=== PATIENT | female | born 1940 | race Caucasian/White ===

== ENCOUNTER 2017-04-06 23:18 | Observation (INO) | payer OTHER ==
[2017-04-06] MEDS ORDERED: NITROGLYCERIN 0.4 MG BTL SL PRN (23:23)
[2017-04-06] MEDS ORDERED: NS 1,000 ML IV ONE (23:23)
--- NOTE | 2017-04-06 23:26 | EDPHY ---
H & P HPI/ROS: HPI CHIEF COMPLAINT: Chest pain x5 hours HISTORY OF PRESENT ILLNESS: This patient very pleasant 76-year-old female, significant past medical history for endometrial cancer status post total hysterectomy, does not take any daily medications, presents emergency room by EMS with chest pain. Around 6 o'clock they were driving back her and her from [place] and developed substernal chest pain she describes as sharp in nature worse when she takes a deep breath in. She also tells me something 6 heavy is sitting on her chest. EMS arrived and evaluated her she did receive full-dose aspirin prior to arrival also received nitroglycerin that did mildly improve her discomfort however upon arrival to the emergency room she still has chest pain. She tells me it is hard to take a deep breath in with the pain feels short of breath associated with this. The pain does not radiate anywhere. She denies nausea, vomiting, jaw pain, arm pain, numbness or tingling o There is a heaviness in her chest. Past Medical History: Endometrial cancer, polio Past Surgical History: Hysterectomy, tonsillectomy Social History: Former smoker, Denies daily use drugs alcohol tobacco products Family History: Noncontributory ROS REVIEW OF SYSTEMS: A comprehensive 10 point review of systems is otherwise negative aside from elements mentioned in the history of present illness. Exam Constitutional appears uncomfortable, triage nursing summary reviewed, vital signs reviewed, awake/alert. Eyes normal conjunctivae and sclera, EOMI, PERRLA. HENT normal inspection, atraumatic, moist mucus membranes, no epistaxis, neck supple/ no meningismus, no raccoon eyes. Respiratory clear to auscultation bilaterally, normal breath sounds, no respiratory distress, no wheezing. Cardiovascular rate normal, regular rhythm, no murmur, no edema, distal pulses normal. Gastrointestinal soft, non-tender, no rebound, no guarding, normal bowel sounds, no distension, no pulsatile mass. Genitourinary no CVA tenderness. Musculoskeletal no midline vertebral tenderness, full range of motion, no calf swelling, no tenderness of extremities, no meningismus, good pulses, neurovascularly intact. Skin pink, warm, & dry, no rash, skin atraumatic. Neurologic awake, alert and oriented x 3, AAOx3, moves all 4 extremities equally, motor intact, sensory intact, CN II-XII intact, normal cerebellar, normal vision, normal speech. Psychiatric normal mood/affect. Heme/Lymph/Immune no lymphadenopathy. Differential diagnosis includes but is not limited to: ACS, atypical chest pain , pneumothorax, pneumonia, pulmonary embolism, aortic dissection, congestive heart failure, tumor, musculoskeletal pain, esophageal pain, GERD, peptic ulcer disease, pancreatitis Medical Decision Making: Plan for this patient full cardiac cath rn, IV establishment, EKG, chest x-ray, troponin, blood work, D-dimer. Patient receive full-dose aspirin will attempt another dose of nitroglycerin to see if this improves her chest discomfort. Re-evaluation: EKG interpretation by me on record in [email or web address] ([email or web address]) system. Impression time of EKG 2332, this is sinus rhythm rate of 75 there is no acute ischemic change appreciated specifically no ST elevation, ST depression significant T-wave abnormality. 2352: This patient was given a 2nd dose of nitroglycerin this greatly improved her chest discomfort. Repeat EKG is being performed at this time. It is also noted this patient has a positive D-dimer in the setting of chest pain and history of endometrial cancer patient need a CT angiogram of her chest rule out pulmonary embolism. CT scan of the angiogram chest. The results of the study are negative pulmonary embolism however there is pericardial circumferential thickening question pericarditis does not appear restrict. The study was read by Dr. Ruiz I viewed the images myself on the PACS system. EKG interpretation by me on record in [email or web address] ([email or web address]) system. Impression time of EKG 10/17/1999, this is sinus rhythm rate of 71 I do not appreciate acute ischemic change. This is unchanged from her previous EKG today. Specifically I do not appreciate any evidence of pericarditis. Unchanged from previous EKG today. This patient be admitted to the hospital service for chest pain evaluation. Her chest pain currently this time is is 0. Or chest pain-free. She did receive nitroglycerin improved her chest discomfort. It is noted on her CT angiogram of her chest she has diffuse pericardial thickening I have no evidence that she is having acute pericarditis at this time. However she does have pleuritic pain when she breathes in it is possible this is pericarditis. Troponins negative. EKG does not indicate pericarditis. Will need to admit to the hospital service for cardiac evaluation chest pain rule out. Dr. Naranjo has accepted Source: Patient, EMS - Personal History Tetanus Vaccine Date: < 10 years - Medical/Surgical History Hx Asthma: No Hx Chronic Respiratory Disease: No Hx Diabetes: No Hx Cardiac Disease: No Hx Renal Disease: No Hx Cirrhosis: No Hx Alcoholism: No Hx HIV/AIDS: No Hx Splenectomy or Spleen Trauma: No Other PMH: polio, tonsillectomy, HYSTERECTOMY 07/21 - Social History Smoking Status: Never smoked Constitutional: Initial Vital Signs Temperature (C) 36.6 C 04/06/17 23:20 Heart Rate 73 04/06/17 23:20 Respiratory Rate 20 04/06/17 23:20 Blood Pressure 99/66 L 04/06/17 23:20 O2 Sat (%) 93 04/06/17 23:20 O2 Delivery Mode Nasal Cannula O2 (L/minute) 2 Allergies/Adverse Reactions: No Known Allergies Allergy (Unverified 09/13/16 15:40) Home Medications: Medication Instructions Recorded NK [No Known Home Meds] 09/13/16 Medical Decision Making - Diagnostics Imaging Results: Imaging Impressions Chest X-Ray 04/06/17 23:23 Impression: Nothing acute identified. Chest/Thorax CTA 04/06/17 23:46 Impression: 1. No pulmonary embolic disease. 2. New global mild pericardial thickening. Query pericarditis. 3. No evidence for metastatic endometrial carcinoma. Results discussed with Dr. Carrasco at 12:14 AM. General information for patients regarding this examination can be found at [email or web address]. If you have questions or comments about this report, please contact me at (hospital) or [phone] (cell). - Data Points Laboratory Results: Laboratory Results 04/06/17 23:20 04/06/17 23:20 04/06/17 04/06/17 04/06/17 23:20 23:20 23:20 WBC 12.30 10^3/uL H 10^3/uL (3.80-9.50) RBC 4.60 10^6/uL 10^6/uL (4.18-5.33) Hgb 14.0 g/dL g/dL (12.6-16.3) Hct 42.5 % % (38.0-47.0) MCV 92.4 fL fL (81.5-99.8) MCH 30.4 pg pg (27.9-34.1) MCHC 32.9 g/dL g/dL (32.4-36.7) RDW 13.6 % % (11.5-15.2) Plt Count 257 10^3/uL 10^3/uL (150-400) MPV 10.7 fL fL (8.7-11.7) Neut % (Auto) 80.6 % H % (39.3-74.2) Lymph % (Auto) 8.5 % L % (15.0-45.0) [place] % (Auto) 9.1 % % (4.5-13.0) Eos % (Auto) 1.1 % % (0.6-7.6) Baso % (Auto) 0.2 % L % (0.3-1.7) Nucleat RBC Rel Count 0.0 % % (0.0-0.2) Absolute Neuts (auto) 9.91 10^3/uL H 10^3/uL (1.70-6.50) Absolute Lymphs (auto) 1.05 10^3/uL 10^3/uL (1.00-3.00) Absolute Monos (auto) 1.12 10^3/uL H 10^3/uL (0.30-0.80) Absolute Eos (auto) 0.13 10^3/uL 10^3/uL (0.03-0.40) Absolute Basos (auto) 0.03 10^3/uL 10^3/uL (0.02-0.10) Absolute Nucleated RBC 0.00 10^3/uL 10^3/uL (0-0.01) Immature Gran % 0.5 % % (0.0-1.1) Immature Gran # 0.06 10^3/uL 10^3/uL (0.00-0.10) PT 12.8 SEC SEC (12.0-15.0) INR 0.97 (0.83-1.16) APTT 25.0 SEC SEC (23.0-38.0) D-Dimer 0.51 ug/mLFEU H ug/mLFEU (0.00-0.50) Sodium 139 mEq/L mEq/L (134-144) Potassium 3.6 mEq/L mEq/L (3.5-5.2) Chloride 104 mEq/L mEq/L (97-110) Carbon Dioxide 20 mEq/l L mEq/l (22-31) Anion Gap 15 mEq/L mEq/L (8-16) BUN 23 mg/dL mg/dL (7-23) Creatinine 1.1 mg/dL H mg/dL (0.6-1.0) Estimated GFR 48 Glucose 121 mg/dL H mg/dL (70-100) Calcium 9.9 mg/dL mg/dL (8.5-10.4) Magnesium 2.2 mg/dL mg/dL (1.6-2.3) Total Bilirubin 0.8 mg/dL mg/dL (0.1-1.4) Conjugated Bilirubin 0.5 mg/dL mg/dL (0.0-0.5) Unconjugated Bilirubin 0.3 mg/dL mg/dL (0.0-1.1) AST 28 IU/L IU/L (14-46) ALT 36 IU/L IU/L (9-52) Alkaline Phosphatase 76 IU/L IU/L (38-126) Creatine Kinase 36 IU/L IU/L (0-156) CK-MB (CK-2) Fraction 0.30 ng/mL ng/mL (0-3.19) Troponin I < 0.012 ng/mL ng/mL (0-0.034) NT-Pro-B Natriuret Pep 109 pg/mL pg/mL (0-450) Total Protein 6.7 g/dL g/dL (6.3-8.2) Albumin 4.1 g/dL g/dL (3.5-5.0) Lipase 190.0 IU/L IU/L (23-300) Medications Given: Discontinued Medications Sodium Chloride (Ns) 1,000 mls @ 0 mls/hr IV ONCE ONE; Wide Open PRN Reason: Protocol Stop: 04/06/17 23:24 Last Admin: 04/06/17 23:50 Dose: 1,000 mls Nitroglycerin (Nitrostat) 0.4 mg SL Q5M PRN PRN Reason: Chest Pain Stop: 04/06/17 23:34 Last Admin: 04/06/17 23:50 Dose: 0.4 mg Departure - Departure Disposition: [facility] In[facility] Acute Clinical Impression: Chest pain Qualifiers: Chest pain type: unspecified Qualified Code(s): R07.9 - Chest pain, unspecified Condition: Fair Referrals: Patient,NotPresent [Unknown] - As per Instructions
[2017-04-06 23:29] LABS: % IMMATURE GRANULYOCYTES 0.5 % (0.0-1.1); ABSOLUTE IMMATURE GRANULOCYTES 0.06 10^3/uL (0.00-0.10); ADD DIFF? NO; ADD MORPH? NO; ADD SCAN? NO; ATYPICAL LYMPHOCYTE FLAG 0 (0-99); FRAGMENT RBC FLAG 0 (0-99); HEMATOCRIT 42.5 % (38.0-47.0); LEFT SHIFT FLG 0 (0-99); LIPEMIA HEMOLYSIS FLAG 80 (0-99); MEAN CELL HEMOGLOBIN 30.4 pg (27.9-34.1); MEAN CELL HEMOGLOBIN CONCENTR. 32.9 g/dL (32.4-36.7); MEAN CELL VOLUME 92.4 fL (81.5-99.8); MEAN PLATELET VOLUME 10.7 fL (8.7-11.7); PLATELET CLUMPS FLAG 60 (0-99); PLATELET COUNT 257 10^3/uL (150-400); RED CELL DISTRIBUTION WIDTH 13.6 % (11.5-15.2)
--- NOTE | 2017-04-06 23:33 | CPEKG ---
Heart Rate: 75 RR Interval: 800 P-R Interval: 156 QRSD Interval: 82 QT Interval: 388 QTC Interval: 434 P [place]: 44 QRS [place]: -12 T Wave [place]: 48 EKG Severity - NORMAL ECG - EKG Impression: SINUS RHYTHM Electronically Signed By: Ebenezer Hernandez 07-Apr-2017 09:46:57
[2017-04-06 23:38] LABS: INR 0.97 (0.83-1.16); PROTIME(PATIENT) 12.8 SEC (12.0-15.0)
[2017-04-06] MEDS ORDERED: NITROGLYCERIN 0.4 MG BTL SL ONE (23:42)
[2017-04-06 23:46] LABS: ALANINE AMINOTRANSFERASE 36 IU/L (9-52); ALBUMIN 4.1 g/dL (3.5-5.0); ALKALINE PHOSPHATASE 76 IU/L (38-126); ANION GAP 15 mEq/L (8-16); ASPARTATE AMINOTRANSFERASE 28 IU/L (14-46); BILIRUBIN,TOTAL 0.8 mg/dL (0.1-1.4); BILIRUBIN-CONJUGATED 0.5 mg/dL (0.0-0.5); BILIRUBIN-UNCONJUGATED 0.3 mg/dL (0.0-1.1); CALCIUM 9.9 mg/dL (8.5-10.4); CARBON DIOXIDE 20 mEq/l (22-31); CHLORIDE 104 mEq/L (97-110); CREATININE 1.1 mg/dL (0.6-1.0); GLOMERULAR FILTRATION RATE 48; GLUCOSE 121 mg/dL (70-100); MAGNESIUM 2.2 mg/dL (1.6-2.3); POTASSIUM 3.6 mEq/L (3.5-5.2); SODIUM 139 mEq/L (134-144); TOTAL PROTEIN 6.7 g/dL (6.3-8.2)
[2017-04-06] MEDS ORDERED: IOPAMIDOL (ISOVUE 370) 100 ML BTL IV ONE (23:48)
[2017-04-06 23:58] LABS: TROPONIN I < 0.012 ng/mL (0-0.034)
[2017-04-07] MEDS ORDERED: ONDANSETRON 4 MG/2 ML VIAL IVP PRN (00:22)
[2017-04-07] MEDS ORDERED: ACETAMINOPHEN 325 MG TAB PO PRN (00:22)
[2017-04-07] MEDS ORDERED: ONDANSETRON DISINTEGRATING 4 MG TAB PO PRN (00:22)
[2017-04-07] MEDS ORDERED: NS 1,000 ML IV SCH (00:30)
[2017-04-07 04:24] VITALS: TEMP 97.5
[2017-04-07 05:11] LABS: % IMMATURE GRANULYOCYTES 0.4 % (0.0-1.1); ABSOLUTE IMMATURE GRANULOCYTES 0.04 10^3/uL (0.00-0.10); ADD DIFF? NO; ADD MORPH? NO; ADD SCAN? NO; ATYPICAL LYMPHOCYTE FLAG 0 (0-99); FRAGMENT RBC FLAG 0 (0-99); HEMATOCRIT 34.8 % (38.0-47.0); HEMOGLOBIN 11.6 g/dL (12.6-16.3); LEFT SHIFT FLG 0 (0-99); LIPEMIA HEMOLYSIS FLAG 80 (0-99); MEAN CELL HEMOGLOBIN 30.5 pg (27.9-34.1); MEAN CELL HEMOGLOBIN CONCENTR. 33.3 g/dL (32.4-36.7); MEAN CELL VOLUME 91.6 fL (81.5-99.8); MEAN PLATELET VOLUME 11.2 fL (8.7-11.7); PLATELET CLUMPS FLAG 0 (0-99); PLATELET COUNT 206 10^3/uL (150-400); RED CELL DISTRIBUTION WIDTH 13.5 % (11.5-15.2)
[2017-04-07 05:26] LABS: ANION GAP 9 mEq/L (8-16); CALCIUM 8.7 mg/dL (8.5-10.4); CARBON DIOXIDE 19 mEq/l (22-31); CHLORIDE 112 mEq/L (97-110); CREATININE 0.9 mg/dL (0.6-1.0); GLOMERULAR FILTRATION RATE > 60; GLUCOSE 106 mg/dL (70-100); POTASSIUM 3.6 mEq/L (3.5-5.2); SODIUM 140 mEq/L (134-144)
[2017-04-07 05:38] LABS: TROPONIN I < 0.012 ng/mL (0-0.034)
--- NOTE | 2017-04-07 07:33 | GHP ---
[f rep st] HISTORY AND PHYSICAL DATE OF ADMISSION: 04/07/2017 CHIEF COMPLAINT: Chest pain. HISTORY OF PRESENT ILLNESS: This is a 76-year-old female with no active medical problems, but a rem ote history of endometrial cancer, who presents with fairly sudden onset of chest pain, which is sha rp and worse with inspiration. It did improve with nitroglycerin. She has not had any fevers or ch ills. No shortness of breath, nausea or vomiting. Pain only happens in the middle of her chest whe n she takes a deep inspiration. REVIEW OF SYSTEMS: A 10-point review of systems was obtained and other than stated above was negati ve. PAST MEDICAL HISTORY: 1. History of endometrial cancer. 2. Previous history of polio. PAST SURGICAL HISTORY: 1. Hysterectomy. 2. Tonsillectomy. SOCIAL HISTORY: No smoking. FAMILY HISTORY: Father had coronary bypass surgery in his 50s. PHYSICAL EXAMINATION: VITAL SIGNS: Afebrile, blood pressure is 101/55, heart rate 80, oxygen satur ation 96% on room air. GENERAL: She is well developed, no apparent distress. HEENT: Nonicteric s clerae. Extraocular movements intact. Moist mucous membranes. NECK: Supple. No thyromegaly. BOSSMAN NGS: Good effort. Clear to auscultation bilaterally. CARDIOVASCULAR: Regular rate and rhythm. N o murmurs, gallops. ABDOMEN: Positive bowel sounds. Soft, nontender, nondistended. No hepatosple nomegaly. EXTREMITIES: No clubbing, cyanosis, or edema. SKIN: Without rash, dry, intact. NEUROLO GICAL: She is moving all 4 extremities equally. PSYCH: Normal mood and affect. LABORATORIES: EKG shows normal sinus rhythm with no ischemic changes. White count is slightly elev ated at 12. Troponin is negative. CT scan of the chest shows mild pericardial thickening, but no P E. ASSESSMENT: A 76-year-old female, presenting with chest pain most likely due to pericarditis. PLAN: Chest pain. Symptoms are more consistent with pericarditis with a complete pleuritic nature. We will rule out with cardiac enzymes. I will check echocardiogram. I am going to start anti-inf lammatories. Probably defer stress testing at this time. /[id number]/MODL
[2017-04-07] MEDS: KETOROLAC 15 MG/1 ML SDV IVP SCH ×2 (09:22→12:56)
[2017-04-07 11:42] VITALS: BP 92/53; PULSE 68; RESP 19; O2SAT 91
--- NOTE | 2017-04-07 12:47 | ECHO ---
[id number] + + [address] : : [place] [address] : : [phone] + + Adult Echocardiographic Report + -------+ :Name: Shira CHAU Date: 04/07/2017 08:46 AM BP: 93/49 mmHg : : Hospital Admission Number: [id number] Jesus on: 222: :: 1940 Gender: Female Height: 63 in : :Age: 76 yrs Race: WH Weight: 110 lb : :Reason For Study: ?pericarditis : : BSA: 1.5 meter s2 : :History: ?pericarditis : + -------+ MMode/2D Measurements \T\ Calculations IVSd: 0.71 cm RVDd: 2.8 cm FS: 28.2 % Ao root diam: LVPWd: 0.74 cm LVIDd: 4.0 cm EDV(Teich): 2.7 cm LVIDs: 2.9 cm 70.6 ml ESV(Teich): 31.7 ml EF(Teich): 55.1 % LVLd ap4: 6.6 cm SV(MOD-sp4): EDV(MOD-sp4): 33.0 ml 47.0 ml LVLs ap4: 5.3 cm ESV(MOD-sp4): 14.0 ml EF(MOD-sp4): 70.2 % Normal Measurement Values: + + :LVIDd (3.5-5.7cm) IVSd (0.6-1.1cm) LVPWd (0.6-1.1cm) Aortic Root (2.0-3.7cm)Left Atrium (1.5-4.0cm): :LV Vol(d) (76-115ml) LV Vol(s) (29-48ml) Ejec Fraction (50-65%)PV Sami (0.6- 1.2m/s) TV Sami (0.4-1.0m/s) : :MV E Sami (0.8-1.0m/s)MV A Sami (0.3-1.0m/s)LVOT Sami (0.7-1.2m/s) Asc Ao Sami ( 0.9-1.8m/s) : + + Doppler Measurements \T\ Calculations MV E max sami: Ao V2 max: LV V1 max: PA V2 max: 78.0 cm/sec 124.3 cm/sec 96.7 cm/sec 85.7 cm/sec MV A max sami: Ao max P.2 mmHgLV V1 max PG: PA max P.8 cm/sec 3.7 mmHg 2.9 mmHg MV E/A: 0.86 MV dec time: 0.14 sec TR max sami: 248.5 cm/sec TR max P.7 mmHg RAP systole: 5.0 mmHg RVSP(TR): 29.7 mmHg Left Ventricle The left ventricle is normal in size and function. There is normal left ventricular wall thickness. Ejection Fraction = 65%. No regional wall motion abnormalities noted. Right Ventricle The right ventricle is normal in size and function. Atria The left atrial size is normal. Right atrial size is normal. Mitral Valve The mitral valve is normal in structure and function. There is no mitral valve stenosis. There is trace mitral regurgitation. Tricuspid Valve The tricuspid valve is normal in structure and function. There is no tricuspid stenosis. There is mild tricuspid regurgitation. Right ventricular systolic pressure is 30mmHg. Aortic Valve The aortic valve is trileaflet. There is no aortic stenosis. There is no aortic insufficiency. Pulmonic Valve The pulmonic valve is not well visualized. Great Vessels The aortic root is normal size. Pericardium/Pleural There is an anterior pericardial fat pad. Conclusion A two-dimensional transthoracic echocardiogram with M-mode and Doppler was performed. 1. The left ventricle is normal in size and function. Ejection Fraction = 65%. No regional wall motion abnormalities noted. 2. The mitral valve is normal in structure and function. There is trace mitral regurgitation. 3. The aortic valve is trileaflet. There is no aortic stenosis. There is no aortic insufficiency. 4. Right ventricular systolic pressure is 30mmHg. 5. There is an anterior pericardial fat pad. Can not exclude a small anterior pericardial effusion. Final Reading Physician: Ebenezer Dutton MD electronically signed on 04/07/2017 12:45 PM Ordering Physician: Scott Naranjo Performed By: Astrid Leone
--- NOTE | 2017-04-07 15:42 | PDDCSUM ---
Discharge Summary Discharge Summary: HOSPITAL COURSE 76 yo female admitted for chest pain and found to have likely pericarditis of unclear etiology. Possible small pericardial effusion on Echocardiogram. No evidence of tamponade and hemodynamic compromise. Was treated with Toradol with full resolution of her sx's. CP r/o followed. No elevated troponin. No events on telemetry. As she is not having any pain and wants to go home, will discharge with Ibuprofen 600mg TID x 7 days. Will hold of on Colchicine given full resolution of sx's on one day of Toradol. Will f/u with her PCP (leyla) in one week to determine if additional imaging (Echo) is needed. DDx: -pericarditis -chest pain Exam: VSS NAD AAOX3 RRR CTA B S/NT/ND NO EDEMA DISCHARGE MEDS: IBUPROFEN STARTED. STOP IN ONE WEEK. TOTAL TIME SPENT ON DISCHARGE IS 35 MINS.
--- NOTE | 2017-04-08 07:36 | CPEKG ---
Heart Rate: 71 RR Interval: 845 P-R Interval: 160 QRSD Interval: 84 QT Interval: 408 QTC Interval: 444 P [place]: 66 QRS [place]: -5 T Wave [place]: 48 EKG Severity - NORMAL ECG - EKG Impression: SINUS RHYTHM Electronically Signed By: Ebenezer Hernandez 08-Apr-2017 08:54:47
== END 2017-04-07 17:44 | disposition home or self-care (01) ==
LOC: EDUNIT# → INTOOBSV 04-07 00:21 → F2W 04-07 01:25
PROVIDERS: ADMIT Internal Medicine; ATTEND Family Medicine
DX: R07.89 Other chest pain (principal); Z85.44 Personal history of malignant neoplasm of other female genital organs; Z86.12 Personal history of poliomyelitis
CPT/HCPCS: 71010; 71275; 93005; 93306; 96360; 99285; G0378; J1885; Q9967

== ENCOUNTER 2018-03-17 10:42 | Emergency (ER) | payer OTHER ==
--- NOTE | 2018-03-17 10:43 | EDPHY ---
HPI/HX/ROS/PE/MDM Narrative: CHIEF COMPLAINT: Chest pain HPI: This is a 77-year-old female with a history of endometrial cancer. She reports sudden onset of sharp substernal chest pain that began sometime this morning and lasted approximately 1 min. History somewhat limited by the patient 's Alzheimer's disease and neither she nor her partner can recall the exact timing or nature of symptoms. She states that she took a full-strength aspirin at that time which relieved her symptoms. She is now completely chest pain free. She denies any recent fever, coughing or pain with inspiration. EMS notes that the patient complained that the pain was worse with movement and laying on 1 side in bed. REVIEW OF SYSTEMS: Aside from elements discussed in the HPI, a comprehensive 10-point review of systems was reviewed and is negative. PMH: Includes endometrial cancer. Patient was admitted last year with a possible diagnosis of pericarditis. SOCIAL HISTORY: Denies alcohol or drug abuse. PHYSICAL EXAM: General:Patient is alert, in no acute distress. ENT:Eyes are normal to inspection. ENT inspection normal. Neck: Normal inspection. Full range of motion. Respiratory:No respiratory distress. Breath sounds normal bilaterally. Cardiovascular: Regular rate and rhythm. Strong peripheral pulses. Normal cap refill. Abdomen:The abdomen is nontender to palpation. There are no peritoneal signs. There are normal bowel sounds. Back: Normal to inspection. No tenderness to palpation. Skin: Normal color. No rash. Warm and dry. Extremities: Normal appearance. Full range of motion. Neuro: Normal motor function. Normal sensory function. ED Course: Plan for IV, labs, EKG, chest x-ray. 500mL IV NS ordered. The 12 lead EKG was interpreted by myself. Sinus mechanism. Unchanged from EKG . See hard copy and/or "tracemaster" electronic copy for interpretation. MDM: This patient presents with atypical chest pain that has completely resolved by time of presentation to the ED. She and her family member are unable to really adequately describe the sensation she had or the exact timing of when it occurred. We performed an extensive cardiac workup in the ED which is negative for ACS, PE, PTX, arrhythmia or infection. The patient mentioned that she had been diagnosed with pericarditis last year. I reviewed these records and it appears the only objective evidence of pericarditis was the presence of a mild pericardial effusion and accompanying chest pain. She had no ECG or lab markers to support that diagnosis. We performed an echo here which is negative for significant effusion and there are no signs of ECG abnormality to suggest pericarditis at this time. I think she is safe for outpatient follow-up. I cautioned her regarding the need for close PCP evaluation. - Data Points Imaging Results: Imaging Impressions Chest X-Ray 03/17/18 10:47 Impression: 1. Chest negative for acute abnormality; suspect basilar atelectasis. 2. See above report for additional findings. Imaging: I viewed and interpreted images myself Laboratory Results: Laboratory Results 03/17/18 10:50 03/17/18 10:50 03/17/18 03/17/18 03/17/18 10:55 10:50 10:50 WBC 6.10 10^3/uL 10^3/uL (3.80-9.50) RBC 4.69 10^6/uL 10^6/uL (4.18-5.33) Hgb 14.7 g/dL g/dL (12.6-16.3) Hct 44.8 % % (38.0-47.0) MCV 95.5 fL fL (81.5-99.8) MCH 31.3 pg pg (27.9-34.1) MCHC 32.8 g/dL g/dL (32.4-36.7) RDW 14.1 % % (11.5-15.2) Plt Count 256 10^3/uL 10^3/uL (150-400) MPV 10.6 fL fL (8.7-11.7) Neut % (Auto) 59.9 % % (39.3-74.2) Lymph % (Auto) 26.9 % % (15.0-45.0) [place] % (Auto) 9.7 % % (4.5-13.0) Eos % (Auto) 3.1 % % (0.6-7.6) Baso % (Auto) 0.2 % L % (0.3-1.7) Nucleat RBC Rel Count 0.0 % % (0.0-0.2) Absolute Neuts (auto) 3.66 10^3/uL 10^3/uL (1.70-6.50) Absolute Lymphs (auto) 1.64 10^3/uL 10^3/uL (1.00-3.00) Absolute Monos (auto) 0.59 10^3/uL 10^3/uL (0.30-0.80) Absolute Eos (auto) 0.19 10^3/uL 10^3/uL (0.03-0.40) Absolute Basos (auto) 0.01 10^3/uL L 10^3/uL (0.02-0.10) Absolute Nucleated RBC 0.00 10^3/uL 10^3/uL (0-0.01) Immature Gran % 0.2 % % (0.0-1.1) Immature Gran # 0.01 10^3/uL 10^3/uL (0.00-0.10) Sodium 145 mEq/L mEq/L (135-145) Potassium 3.7 mEq/L mEq/L (3.3-5.0) Chloride 106 mEq/L mEq/L (97-110) Carbon Dioxide 27 mEq/l mEq/l (22-31) Anion Gap 12 mEq/L mEq/L (8-16) BUN 16 mg/dL mg/dL (7-23) Creatinine 0.9 mg/dL mg/dL (0.6-1.0) Estimated GFR 60 Glucose 90 mg/dL mg/dL (70-100) Calcium 9.1 mg/dL mg/dL (8.5-10.4) POC Troponin I 0.00 ng/mL ng/mL (0.00-0.08) Medications Given: Discontinued Medications Sodium Chloride (Ns) 500 mls @ 0 mls/hr IV EDNOW ONE; Wide Open PRN Reason: Protocol Stop: 03/17/18 10:48 Last Admin: 03/17/18 11:18 Dose: 500 mls Point of Care Test Results: Chemistry 03/17/18 10:55 POC Troponin I 0.00 ng/mL ng/mL (0.00-0.08) General Time Seen by Provider: 03/17/18 10:41 Initial Vital Signs: Initial Vital Signs Temperature (C) 37 C 03/17/18 10:40 Heart Rate 66 03/17/18 10:40 Respiratory Rate 16 03/17/18 10:40 Blood Pressure 147/80 H 03/17/18 10:40 O2 Sat (%) 95 03/17/18 10:40 O2 Delivery Mode Room Air O2 (L/minute) 2 Allergies/Adverse Reactions: No Known Allergies Allergy (Unverified 09/13/16 15:40) Home Medications: Medication Instructions Recorded C/E/Zn/Cu/OM3/DHA/EPA/LUT/ZEAX 1 each PO DAILY 04/07/17 [Preservision Areds 2 Softgel] Cholecalciferol Vit D3 [Vitamin D3 5,000 units PO DAILY 04/07/17 (*)] Herbals/Supplements -Info Only 1 each PO DAILY 04/07/17 Ibuprofen 600 mg PO TID #90 tablet 04/07/17 [place]-3 Fatty Acids [Fish Oil 1000 1,000 mg PO DAILY 04/07/17 mg (*)] Cbd Oil 03/17/18 Departure - Departure Disposition: Home, Routine, Self-Care Clinical Impression: Chest pain Condition: Good Instructions: Chest Pain (ED) Additional Instructions: Follow-up with your primary doctor within 72 hours. Return to the Emergency Department for fever, chest pain, shortness of breath, increasing pain or other worsening of condition. Follow up with a medical records specialist for further testing, as soon as possible, within one week. Referrals: Patient,NotPresent [Unknown] - As per Instructions Report Scribed for: David Moran Report Scribed by: Stormy Franklin Date of Report: 03/17/18 Time of Report: 11:25 Physician Review and Approval Statement: Portions of this note were transcribed by an ED scribe. I personally performed the history, physical exam, and medical decision making; and confirm the accuracy of the information in the transcribed note.
[2018-03-17] MEDS ORDERED: NS 500 ML IV ONE (10:47)
--- NOTE | 2018-03-17 10:59 | CPEKG ---
Heart Rate: 61 RR Interval: 984 P-R Interval: 168 QRSD Interval: 80 QT Interval: 408 QTC Interval: 411 P [place]: 73 QRS [place]: 1 T Wave [place]: 53 EKG Severity - BORDERLINE ECG - EKG Impression: SINUS RHYTHM EKG Impression: LOW VOLTAGE THROUGHOUT Electronically Signed By: Ebenezer Hernandez 22-Mar-2018 11:35:02
[2018-03-17 11:17] LABS: PLATELET COUNT 256 10^3/uL (150-400)
[2018-03-17 13:31] VITALS: BP 134/73
--- NOTE | 2018-03-17 15:07 | ECHO ---
[email or web address] [address] [address] Main: [phone] Fax: Transthoracic Echocardiogram Name: FREDRICK CHAU MR#: [id number] Study Date: 03/17/2018 Study Time: 01:21 PM Date of : 1940 Age: 77 year(s) Height: 162.6 cm (64 in.) Weight: 48.99 kg (108 lb.) BSA: 1.51 m2 Gender: Female Examination: Limited Echo Indication: Chest pain/hx pericardial effusion Image Quality: Contrast: Requested by: David Moran BP: / Heart Rate: Rhythm: Indication: Chest pain/hx pericardial effusion Procedure Staff Marine Operations Coordinator: Heidi Friedman RDCS Reading Physician: Juan Diego Ritter MD Requesting Provider: Conclusions: Normal global systolic LV function. The ejection fraction is estimated to be 65-70 %. Trivial to mild mitral regurgitation. Trivial tricuspid valve regurgitation. The pulmonary artery pressure is normal. Measurements: Chambers Valvular Assessment AV/MV Valvular Assessment TV/PV Normal Normal Normal Name Value Range Name Value Range Name Value Range Ao Albina (MM): 3.1 cm (2.2 cm-3.7 AV Vmax: 1.20 m/s (1 m/s-1.7 TR Vmax: 2.42 mm/s ( - ) cm) m/s) TR PGmax: 23 mmHg ( - ) IVSd (2D): 0.5 cm (0.6 cm-1.1 AV maxP mmHg ( - ) syst. PAP: 28 mmHg ( - ) cm) AV meanP mmHg ( - ) LVDd (2D): 4.3 cm (3.9 cm-5.3 MV E Vmax: 0.63 m/s ( - ) cm) MV A Vmax: 0.63 m/s ( - ) LVDs (2D): 2.4 cm (2.1 cm-4 MV E/A: 1.00 ( - ) cm) LVPWd (2D): 0.8 cm ( - ) LVEF (MOD4): 74 % (>=55 %) EF Range: 65-70 % Continued Measurements: Chambers Valvular Assessment AV/MV Valvular Assessment TV/PV Name Value Name Value Name Value LADs: 3.4 cm MV E/E' Septal: 9.00 CVP (est.): 5 mmHg LADs Lon.4 cm MV E/E' Lateral: 8.10 LA Area: 10.2 cm2 Patient: FREDRICK CHAU Study Date: 03/17/2018 Page 1 of 2 01:21 PM Additional Vessels Name Value Ao Ascendin.3 cm Findings: Left Ventricle: Normal size left ventricle. No LV hypertrophy. Normal global systolic LV function. The ejection fraction is estimated to be 65-70 %. No regional wall motion abnormality. Normal diastolic LV function. Right Ventricle: Normal size right ventricle. Left Atrium: The left atrium is normal in size. Right Atrium: The right atrium is normal in size. Mitral Valve: The mitral valve is normal in appearance and function. Trivial to mild mitral regurgitation. Aortic Valve: The aortic valve is normal in appearance and function. Tricuspid Valve: The tricuspid valve is normal in appearance and function. Trivial tricuspid valve regurgitation. The pulmonary artery pressure is normal. Pulmonic Valve: The pulmonic valve is normal in appearance and function. Aorta: The aorta is normal. Pericardium: There is an anterior fat pad vs. trace anterior pericardial effusion.. (No Signature Object) Patient: FREDRICK CHAU Study Date: 03/17/2018 Page 2 of 2 01:21 PM [id number]
== END 2018-03-17 15:42 | disposition home or self-care (01) ==
LOC: EDBD → EDUNIT#
DX: R07.9 Chest pain, unspecified (principal); E86.9 Volume depletion, unspecified; Z85.42 Personal history of malignant neoplasm of other parts of uterus
CPT/HCPCS: 84484-PO

== ENCOUNTER 2018-03-30 03:34 | Emergency (ER) | payer OTHER ==
[2018-03-30] MEDS ORDERED: IOPAMIDOL (ISOVUE-300) 100 ML BTL ONE (04:35)
--- NOTE | 2018-03-30 05:11 | EDPHY ---
H & P Stated Complaint: Fell tuesday and now having lower back pain Time Seen by Provider: 03/30/18 04:11 HPI/ROS: HPI The patient presents with lower back and left flank pain after a fall which occurred about 6 days ago. She was walking, slipped and fell and has her back on a wooden deck. She had pain immediately though is able to manage it at home. The pain has been persistent and getting somewhat worse, she was unable to get comfortable in fall asleep tonight so she has come into the emergency department. She says she has to change positions very carefully to avoid pain. It is aching in nature. She does not have any hematuria. She does not have any history of prior injury.. REVIEW OF SYSTEMS Constitutional: No fever, no chills. Eyes: No discharge. ENT: No sore throat. Cardiovascular: No chest pain, no palpitations. Respiratory: No cough, no shortness of breath. Gastrointestinal: No abdominal pain, no vomiting. Genitourinary: No hematuria. Musculoskeletal: Positive for back pain. Skin: No rashes. Neurological: No headache. PMHx: Endometrial cancer status post hysterectomy Soc Hx: Housed with her PHYSICAL General Appearance: Alert, no distress Eyes: Pupils equal and round no pallor or injection ENT, Mouth: Mucous membranes moist Respiratory: There are no retractions, lungs are clear to auscultation Cardiovascular: Regular rate and rhythm Gastrointestinal: Abdomen is soft and non-tender, no masses, bowel sounds normal Back: Left flank tenderness to palpation with overlying ecchymoses, there is also tenderness just lateral to the upper lumbar spine in the area of the paraspinal muscles Neurological: A&O, moves all extremities Skin: Warm and dry, no rashes Musculoskeletal: Neck is supple non tender Extremities: symmetrical, full range of motion Psychiatric: Patient is oriented X 3, there is no agitation Source: Patient Exam Limitations: No limitations - Personal History Current Tetanus/Diphtheria Vaccine: Yes Current Tetanus Diphtheria and Acellular Pertussis (TDAP): Yes Tetanus Vaccine Date: < 10 years - Medical/Surgical History Hx Asthma: No Hx Chronic Respiratory Disease: No Hx Diabetes: No Hx Cardiac Disease: No Hx Renal Disease: No Hx Cirrhosis: No Hx Alcoholism: No Hx HIV/AIDS: No Hx Splenectomy or Spleen Trauma: No Other PMH: polio, tonsillectomy, HYSTERECTOMY 07/21, endometrial CA led to hysterectomy, alzheimer - Social History Smoking Status: Former smoker Constitutional: Initial Vital Signs Temperature (C) 36.4 C 03/30/18 03:38 Heart Rate 64 03/30/18 03:38 Respiratory Rate 16 03/30/18 03:38 Blood Pressure 103/90 H 03/30/18 03:38 O2 Sat (%) 98 03/30/18 03:38 O2 Delivery Mode Room Air Allergies/Adverse Reactions: No Known Allergies Allergy (Verified 03/30/18 03:41) Home Medications: Medication Instructions Recorded C/E/Zn/Cu/OM3/DHA/EPA/LUT/ZEAX 1 each PO DAILY 04/07/17 [Preservision Areds 2 Softgel] Cholecalciferol Vit D3 [Vitamin D3 5,000 units PO DAILY 04/07/17 (*)] Herbals/Supplements -Info Only 1 each PO DAILY 04/07/17 Ibuprofen 600 mg PO TID #90 tablet 04/07/17 [place]-3 Fatty Acids [Fish Oil 1000 1,000 mg PO DAILY 04/07/17 mg (*)] Cbd Oil 03/17/18 Medical Decision Making - Diagnostics Imaging Results: CT abdomen pelvis, thoracic and lumbar spine demonstrate left-sided 11th nondisplaced rib fracture, discussed with Dr. Perla of Radiology. Imaging: Discussed imaging studies w/ tire buffer Radiologist, I viewed and interpreted images myself Differential Diagnosis: This is a 77-year-old female who presents after a fall 1 week ago with persistent left-sided flank tenderness and pain. The pain is becoming worse and she was unable to sleep tonight so she comes into the emergency department. On exam, she does have tenderness to her left flank with overlying ecchymoses. This is concerning for retroperitoneal injury. Also she is having tenderness just lateral of the midline raising suspicion for compression fracture. I have ordered CT scans of her abdomen and spine. CT scans actually revealed posterior left 11th rib fracture. This can explain patient's pain. I have discussed this with her. I have ordered a lidocaine patch for her. I have instructed her to take ibuprofen and Tylenol at home. She is happy with this plan. - Data Points Laboratory Results: 03/30/18 04:45 POC Hgb 14.3 gm/dL gm/dL (12.6-16.3) POC Hct 42 % % (38-47) POC Sodium 142 mEq/L mEq/L (135-145) POC Potassium 3.9 mEq/L mEq/L (3.3-5.0) POC Chloride 107 mEq/L mEq/L (97-110) POC BUN 31 mg/dL H mg/dL (7-23) POC Creatinine 1.0 mg/dL mg/dL (0.6-1.0) POC Glucose 96 mg/dL mg/dL (70-100) Point of Care Test Results: Chemistry 03/30/18 04:45 POC Sodium 142 mEq/L mEq/L (135-145) POC Potassium 3.9 mEq/L mEq/L (3.3-5.0) POC Chloride 107 mEq/L mEq/L (97-110) POC BUN 31 mg/dL H mg/dL (7-23) POC Creatinine 1.0 mg/dL mg/dL (0.6-1.0) POC Glucose 96 mg/dL mg/dL (70-100) ISTAT H&H 03/30/18 04:45 POC Hgb 14.3 gm/dL gm/dL (12.6-16.3) POC Hct 42 % % (38-47) Departure - Departure Disposition: Home, Routine, Self-Care Clinical Impression: Rib fracture Qualifiers: Encounter type: initial encounter Rib fracture type: single rib Fracture type: closed Laterality: left Qualified Code(s): S22.32XA - Fracture of one rib, left side, initial encounter for closed fracture Condition: Good Instructions: Rib Fracture (ED) Additional Instructions: I suspect he ripped the and is coming from the rib fracture that we have found. Because of this I recommend you take Tylenol or ibuprofen as needed for pain. You should return to the emergency department if your worse in any way. Referrals: JUDAH HART [Primary Care Provider] - As per Instructions
[2018-03-30] MEDS ORDERED: LIDOCAINE 4%/MENTHOL 1% PATCH TD ONE (06:01)
[2018-03-30 06:59] VITALS: BP 116/82
[2018-03-30] MEDS ORDERED: PATCH REMOVAL 1 EA PATCH TD SCH (21:00)
== END 2018-03-30 07:01 | disposition home or self-care (01) ==
DX: S22.32XA Fracture of one rib, left side, initial encounter for closed fracture (principal); Z85.42 Personal history of malignant neoplasm of other parts of uterus; Z87.891 Personal history of nicotine dependence; W01.0XXA Fall on same level from slipping, tripping and stumbling without subsequent striking against object, initial encounter; Y92.009 Unspecified place in unspecified non-institutional (private) residence as the place of occurrence of the external cause; Y99.8 Other external cause status; Y93.01 Activity, walking, marching and hiking
CPT/HCPCS: 72128; 72132; 74177; 99285; Q9967; 82435-PO; 82565-PO; 82947-PO; 84132-PO; 84295-PO; 84520-PO; 85014-PO